=== PATIENT | female | born 1980 | race Hispanic/Latino ===

== ENCOUNTER 2016-12-31 05:29 | Emergency (ER) | payer BC, SELFPAY ==
[2016-12-31] MEDS ORDERED: Dexamethasone 10 MG/ML VIAL ONE (05:43)
== END 2016-12-31 06:29 | disposition home or self-care (01) ==
LOC: ERS 05:29
DX: J02.9 Acute pharyngitis, unspecified (principal)
CPT/HCPCS: 87070; 87081; 87430; 99283; J1100

== ENCOUNTER 2023-07-27 00:55 | Emergency (ER) | payer BC ==
[2023-07-27] MEDS ORDERED: Dexamethasone 10 MG/ML VIAL ONE (01:45)
[2023-07-27] MEDS ORDERED: diphenhydrAMINE 50 MG CAP ONE (01:46)
== END 2023-07-27 03:24 | disposition home or self-care (01) ==
LOC: ERS 00:55
DX: K13.79 Other lesions of oral mucosa (principal); I10 Essential (primary) hypertension
CPT/HCPCS: 99283; J1100